=== PATIENT | female | born 1955 | race African-American/Black ===

== ENCOUNTER 2016-07-24 00:12 | Emergency (ER) | payer OTHER ==
[~2016-07-24 00:12] MED LIST: ALDACTONE25 MG PO; AMOXICILLIN875 MG PO; CLONIDINE HCL0.3 MG PO; FLONASE16 GM; LIPITOR20 MG PO; LOPRESSOR PO; NEXIUM PO; NORCO 10/3251 TAB PO; OMEGA 3 FISH1 CAP.EC PO; PRINIVIL20 M1 PO; ZYRTEC10 M2 PO
== END 2016-07-24 00:48 | disposition left against medical advice (07) ==
LOC: CED 00:12
DX: F10.129 Alcohol abuse with intoxication, unspecified (principal); I10 Essential (primary) hypertension; Z79.899 Other long term (current) drug therapy; Z79.2 Long term (current) use of antibiotics; Z91.041 Radiographic dye allergy status; V47.5XXA Car driver injured in collision with fixed or stationary object in traffic accident, initial encounter; Y92.410 Unspecified street and highway as the place of occurrence of the external cause
CPT/HCPCS: 99283